=== PATIENT | female | born 1955 | race African-American/Black ===

== ENCOUNTER 2018-01-17 17:27 | Inpatient (IN) | payer MEDICARE, MEDICAID ==
[~2018-01-17] VITALS: Ht 165.1 cm; Wt 58.6 kg
[2018-01-17] MEDS ORDERED: SODIUM CHLORIDE 0.9% 1000ML BAG (SEPSIS BOLUS) IV ONE (17:45)
[2018-01-17] MEDS ORDERED: LORAZEPAM 2MG/ML CPJ IM STA (17:51)
[2018-01-17] MEDS ORDERED: HALOPERIDOL LACTATE 5MG/ML VIAL IM ONE (18:00)
[2018-01-17 19:05] LABS: HEMATOCRIT. 37.4 % (36.0-48.0); HEMOGLOBIN. 12.3 g/dL (12.0-16.0); MEAN CORPUSCULAR HEMOGLOBIN 30.1 pg (28.0-32.0); MEAN CORPUSCULAR VOLUME 91.2 fL (81.0-99.0); MEAN PLATELET VOLUME 10.3 fl (7.4-10.4); PLATELET 112 x1000/uL (130-400); RED CELL DISTRIBUTION WIDTH 17.6 % (11.6-14.6)
[2018-01-17 19:09] LABS: CHLORIDE 123 mEq/L (98-107); INR 1.4; PROTHROMBIN TIME 13.6 sec (9.1-11.1)
[2018-01-17 19:30] LABS: PLATELET ESTIMATE DECREASED
[2018-01-17] MEDS ORDERED: VANCOMYCIN 1 G PREMIX 200 ML IV ONE (19:30)
[2018-01-17] MEDS ORDERED: PIPERACILLIN/TAZ 3.375G PREMIX 50 ML IV ONE (19:30)
[2018-01-17 21:45] VITALS: BP 115/88
[2018-01-17 21:46] VITALS: BP 115/88
[2018-01-17 21:59] LABS: CLARITY URINE CLEAR (CLEAR); COLOR URINE YELLOW (YELLOW); KETONES URINE NEGATIVE (NEGATIVE); LEUKOCYTE ESTERASE URINE 1+ (NEGATIVE); NITRITE URINE NEGATIVE (NEGATIVE); OCCULT BLOOD URINE 1+ (NEGATIVE); PROTEIN URINE 1+ (NEGATIVE); SPECIFIC GRAVITY URINE 1.014 (1.005-1.030)
[2018-01-17 22:00] VITALS: BP 103/76
[2018-01-17] MEDS ORDERED: DEXTROSE 5% WATER 1,000 ML IV SCH (22:38)
[2018-01-17] MEDS ORDERED: ACETAMINOPHEN 650MG SUPP PR PRN (22:45)
[2018-01-17] MEDS ORDERED: ONDANSETRON HCL 4MG/2ML VIAL IV PRN (22:45)
[2018-01-17] MEDS ORDERED: ONDANSETRON 4MG ODT PO PRN (23:30)
[2018-01-18] VITALS (9 sets, daily range): BP systolic 100–142; BP diastolic 42–90
[2018-01-18] MEDS ORDERED: VANCOMYCIN 1250MG in DEXTROSE 5% WATER 250ML IV SCH (02:00)
[2018-01-18] MEDS ORDERED: PIPERACILLIN/TAZ 3.375G PREMIX 50 ML IV SCH (06:00)
[2018-01-18 07:26] LABS: CHLORIDE 121 mEq/L (98-107)
[2018-01-18 07:33] LABS: HEMOGLOBIN. 12.1 g/dL (12.0-16.0); MEAN CORPUSCULAR HEMOGLOBIN 30.4 pg (28.0-32.0); MEAN CORPUSCULAR VOLUME 92.7 fL (81.0-99.0); MEAN PLATELET VOLUME 10.1 fl (7.4-10.4); PLATELET 106 x1000/uL (130-400); RED BLOOD CELL COUNT 3.99 mill/uL (4.2-5.4); RED CELL DISTRIBUTION WIDTH 18.1 % (11.6-14.6)
[2018-01-18 07:47] LABS: LDL CHOLESTEROL 91 mg/dL (5-100)
[2018-01-18 07:48] LABS: CREATINE KINASE 81 IU/L (26-192)
[2018-01-18 07:49] LABS: HDL CHOLESTEROL 23 mg/dL (40-59)
[2018-01-18 07:52] LABS: CREATINE KINASE MB FRACTION 1.9 ng/mL (0.5-3.6)
[2018-01-18] MEDS ORDERED: ENOXAPARIN 40MG/0.4ML SYR SUBCUT SCH (09:00)
[2018-01-18 12:43] LABS: FOLIC ACID (FOLATE) SERUM 15.8 ng/mL (>5.38)
[2018-01-18] MEDS ORDERED: POTASSIUM CHLORIDE INJ 20 MEQ in DEXT 5%/0.2% NACL 1,000 ML IV SCH (13:30)
[2018-01-18] MEDS ORDERED: DEXT 5%/0.2% NACL KCL 20MEQ/L 1,000 ML IV SCH (13:30)
[2018-01-18] MEDS ORDERED: LIDOCAINE HCL 1% 20ML VIAL (Pyxis) INJ ONE (13:55)
[2018-01-18] MEDS ORDERED: PIPERACILLIN/TAZOBACTAM 2.25 G in DEXTROSE 5% WATER 50 ML IV SCH (14:00)
[2018-01-18 14:01] LABS: BG BASE EXCESS 2.2 mmol/L (-2.0-2.0); BG CARBOXYHEMOGLOBIN 0.5 % (0.5-1.5); BG DEOXYHEMOGLOBIN 3.5 % (0.0-5.0); BG FRACTION INSPIRED OXYGEN 32; BG HCO3 ACT 23.7 mmol/L (22.0-26.0); BG METHEMOGLOBIN 0.2 % (0.0-1.5); BG OXYGEN SATURATION 96.5 % (92.0-98.5); BG OXYHEMOGLOBIN 95.8 % (94.0-97.0); BG PCO2 27.8 mmHg (35.0-45.0); BG PH 7.548 (7.350-7.450); BG PO2 86.7 mmHg (75.0-100.0); BG SAMPLE SITE RIGHT BRACHIAL; BG TOTAL HEMOGLOBIN 12.4 g/dL (12.0-18.0); BG VENT MODE NASAL CANNULA
[2018-01-18 14:53] LABS: SODIUM URINE RANDOM 12 mEq/L
[2018-01-18 15:00] LABS: *BENZODIAZEPINES SCREEN URINE NEGATIVE (NEGATIVE); *COCAINE SCREEN URINE NEGATIVE (NEGATIVE); METHADONE URINE SCREEN NEGATIVE (NEGATIVE); OPIATES URINE SCREEN NEGATIVE (NEGATIVE)
[2018-01-18 15:01] LABS: *AMPHETAMINES SCREEN URINE NEGATIVE (NEGATIVE); *BARBITURATES SCREEN URINE NEGATIVE (NEGATIVE); CANNABINOID URINE SCREEN NEGATIVE (NEGATIVE); PHENCYCLIDINE URINE SCREEN NEGATIVE (NEGATIVE)
[2018-01-18] MEDS: PIPERACILLIN/TAZ 3.375G PREMIX 50 ML IV SCH ×2 (15:40→21:20)
[2018-01-18 16:32] LABS: CHLORIDE 122 mEq/L (98-107)
[2018-01-18 16:34] LABS: AMYLASE 31 IU/L (25-115)
[2018-01-18 16:40] LABS: CREATINE KINASE 75 IU/L (26-192)
[2018-01-18 16:41] LABS: CREATINE KINASE MB FRACTION < 1.0 ng/mL (0.5-3.6)
[2018-01-18 17:04] LABS: PLATELET ESTIMATE DECREASED
[2018-01-18] MEDS: VANCOMYCIN 750 MG PREMIX 150 ML IV SCH (18:14)
[2018-01-18 19:57] LABS: AMMONIA 32 uMol/L (<32)
[2018-01-18 20:05] LABS: T4 FREE 1.16 ng/dL (0.76-1.46)
[2018-01-18] MEDS: PANTOPRAZOLE SODIUM 40 MG/VIAL IV SCH (21:21)
[2018-01-18] MEDS: ENOXAPARIN 60MG/0.6ML SYR SUBCUT SCH (21:21)
[2018-01-18] MEDS: POTASSIUM CHLORIDE INJ 30 MEQ in DEXTROSE 5% WATER 1,000 ML IV SCH (21:26)
[2018-01-19] VITALS (32 sets, daily range): BP systolic 75–188; BP diastolic 50–134
[2018-01-19] MEDS: PIPERACILLIN/TAZ 3.375G PREMIX 50 ML IV SCH ×4 (03:15→21:19)
[2018-01-19] MEDS: VANCOMYCIN 750 MG PREMIX 150 ML IV SCH ×2 (03:15→17:46)
[2018-01-19] MEDS: IPRATROPIUM/ALBUTEROL 0.5-3(2.5)MG/3ML NEB INH PRN ×3 (04:08→11:34)
[2018-01-19 08:28] LABS: AMMONIA 39 uMol/L (<32)
[2018-01-19] MEDS: ENOXAPARIN 60MG/0.6ML SYR SUBCUT SCH ×2 (08:41→21:19)
[2018-01-19] MEDS: PANTOPRAZOLE SODIUM 40 MG/VIAL IV SCH (08:41)
[2018-01-19 09:00] LABS: CHLORIDE 118 mEq/L (98-107)
[2018-01-19 09:09] LABS: PHOSPHORUS 2.9 mg/dL (2.5-4.9)
[2018-01-19] MEDS ORDERED: KCL 20MEQ/100ML PREMIX 100 ML IV NR (10:00)
[2018-01-19 10:18] LABS: BG BASE EXCESS 1.4 mmol/L (-2.0-2.0); BG CARBOXYHEMOGLOBIN 0.3 % (0.5-1.5); BG DEOXYHEMOGLOBIN 0.8 % (0.0-5.0); BG FRACTION INSPIRED OXYGEN 100; BG HCO3 ACT 25.2 mmol/L (22.0-26.0); BG METHEMOGLOBIN 0.5 % (0.0-1.5); BG OXYGEN SATURATION 99.2 % (92.0-98.5); BG OXYHEMOGLOBIN 98.4 % (94.0-97.0); BG PH 7.451 (7.350-7.450); BG PO2 353.9 mmHg (75.0-100.0); BG SAMPLE SITE RIGHT RADIAL; BG TOTAL HEMOGLOBIN 11.7 g/dL (12.0-18.0); BG VENT MODE MASK - NRB
[2018-01-19 10:35] LABS: AMMONIA 26 uMol/L (<32)
[2018-01-19] MEDS ORDERED: HYDRALAZINE 20MG/ML VIAL IV PRN (10:45)
[2018-01-19] MEDS: POTASSIUM CHLORIDE INJ 30 MEQ in DEXTROSE 5% WATER 1,000 ML IV SCH (11:03)
[2018-01-19] MEDS ORDERED: IPRATROPIUM/ALBUTEROL 0.5-3(2.5)MG/3ML NEB HHN PRN (12:30)
[2018-01-19 16:00] LABS: HEMATOCRIT. 33.2 % (36.0-48.0); HEMOGLOBIN. 10.9 g/dL (12.0-16.0); MEAN CORPUSCULAR HEMOGLOBIN 30.4 pg (28.0-32.0); MEAN CORPUSCULAR VOLUME 92.9 fL (81.0-99.0); MEAN PLATELET VOLUME 10.4 fl (7.4-10.4); PLATELET 115 x1000/uL (130-400); RED BLOOD CELL COUNT 3.57 mill/uL (4.2-5.4); RED CELL DISTRIBUTION WIDTH 17.7 % (11.6-14.6)
[2018-01-19 16:05] LABS: INR 1.4; PARTIAL THROMBOPLASTIN TIME 33.8 sec (23.4-31.0); PROTHROMBIN TIME 13.6 sec (9.1-11.1)
[2018-01-19 16:07] LABS: CHLORIDE 120 mEq/L (98-107)
[2018-01-19 16:17] LABS: PLATELET ESTIMATE DECREASED
[2018-01-19 18:58] LABS: BG BASE EXCESS 0.6 mmol/L (-2.0-2.0); BG CARBOXYHEMOGLOBIN 0.3 % (0.5-1.5); BG FRACTION INSPIRED OXYGEN 100; BG HCO3 ACT 25.1 mmol/L (22.0-26.0); BG METHEMOGLOBIN 0.3 % (0.0-1.5); BG OXYHEMOGLOBIN 98.4 % (94.0-97.0); BG PCO2 39.8 mmHg (35.0-45.0); BG PH 7.417 (7.350-7.450); BG PO2 181.5 mmHg (75.0-100.0); BG SAMPLE SITE RIGHT RADIAL; BG VENT MODE MASK - NRB
[2018-01-20] VITALS (84 sets, daily range): BP systolic 65–201; BP diastolic 49–109
[2018-01-20] MEDS: IPRATROPIUM/ALBUTEROL 0.5-3(2.5)MG/3ML NEB HHN SCH ×6 (00:36→20:10)
[2018-01-20] MEDS: PIPERACILLIN/TAZ 3.375G PREMIX 50 ML IV SCH ×4 (02:05→21:09)
[2018-01-20] MEDS: POTASSIUM CHLORIDE INJ 30 MEQ in DEXTROSE 5% WATER 1,000 ML IV SCH ×4 (02:06→21:21)
[2018-01-20] MEDS: VANCOMYCIN 750 MG PREMIX 150 ML IV SCH (04:27)
[2018-01-20 06:21] LABS: HEMATOCRIT. 34.5 % (36.0-48.0); HEMOGLOBIN. 11.3 g/dL (12.0-16.0); MEAN CORPUSCULAR HEMOGLOBIN 30.4 pg (28.0-32.0); MEAN CORPUSCULAR VOLUME 93.3 fL (81.0-99.0); MEAN PLATELET VOLUME 11.2 fl (7.4-10.4); PLATELET 125 x1000/uL (130-400); RED CELL DISTRIBUTION WIDTH 18.1 % (11.6-14.6)
[2018-01-20 06:37] LABS: AMMONIA 27 uMol/L (<32)
[2018-01-20 07:42] LABS: BG BASE EXCESS -0.7 mmol/L (-2.0-2.0); BG BILEVEL POS AIRWAY PRESSURE 15/5; BG CARBOXYHEMOGLOBIN 0.3 % (0.5-1.5); BG DEOXYHEMOGLOBIN 2.4 % (0.0-5.0); BG HCO3 ACT 22.6 mmol/L (22.0-26.0); BG METHEMOGLOBIN 0.1 % (0.0-1.5); BG OXYGEN SATURATION 97.6 % (92.0-98.5); BG OXYHEMOGLOBIN 97.2 % (94.0-97.0); BG PCO2 33.1 mmHg (35.0-45.0); BG PH 7.453 (7.350-7.450); BG PO2 106.5 mmHg (75.0-100.0); BG SAMPLE SITE RIGHT RADIAL; BG TOTAL HEMOGLOBIN 11.3 g/dL (12.0-18.0); BG VENT MODE MASK - BIPAP; BG VENT RATE 16 set
[2018-01-20 07:50] LABS: CHLORIDE 117 mEq/L (98-107)
[2018-01-20 07:55] LABS: NUCLEATED RED BLOOD CELLS 3 /100 WBC
[2018-01-20 07:56] LABS: PLATELET ESTIMATE SLIGHTLY DECREASED
[2018-01-20] MEDS: PANTOPRAZOLE SODIUM 40 MG/VIAL IV SCH (09:58)
[2018-01-20] MEDS: ENOXAPARIN 60MG/0.6ML SYR SUBCUT SCH (09:59)
[2018-01-20 12:19] LABS: BG BASE EXCESS 0.4 mmol/L (-2.0-2.0); BG CARBOXYHEMOGLOBIN 0.3 % (0.5-1.5); BG DEOXYHEMOGLOBIN 3.1 % (0.0-5.0); BG HCO3 ACT 25.5 mmol/L (22.0-26.0); BG METHEMOGLOBIN 0.2 % (0.0-1.5); BG OXYGEN SATURATION 96.9 % (92.0-98.5); BG OXYHEMOGLOBIN 96.4 % (94.0-97.0); BG PCO2 43.2 mmHg (35.0-45.0); BG PH 7.389 (7.350-7.450); BG PO2 101.6 mmHg (75.0-100.0); BG SAMPLE SITE RIGHT RADIAL; BG TIDAL VOLUME(mL) 450 mL; BG TOTAL HEMOGLOBIN 11.8 g/dL (12.0-18.0); BG VENT MODE VENT - A/C; BG VENT RATE 14 set
[2018-01-20] MEDS ORDERED: NOREPINEPHRINE BITARTRATE 1MG/ML 4ML IV ONE (12:21)
[2018-01-20] MEDS ORDERED: VECURONIUM BROMIDE 10 MG/VIAL IV ONE (13:54)
[2018-01-20] MEDS ORDERED: ETOMIDATE 2MG/ML 10ML VIAL IV ONE (13:54)
[2018-01-20] MEDS ORDERED: PROPOFOL 10MG/ML 100ML 100 ML IV PRN (21:00)
[2018-01-20] MEDS: ENOXAPARIN 40MG/0.4ML SYR SUBCUT SCH (21:10)
[2018-01-20] MEDS: NOREPINEPHRINE 8 MG in DEXT 5% WATER 242 ML IV PRN (23:53)
[2018-01-21] VITALS (131 sets, daily range): BP systolic 23–129; BP diastolic 13–97
[2018-01-21] MEDS: IPRATROPIUM/ALBUTEROL 0.5-3(2.5)MG/3ML NEB HHN SCH ×7 (00:06→23:57)
[2018-01-21] MEDS: PIPERACILLIN/TAZ 3.375G PREMIX 50 ML IV SCH ×4 (03:22→21:28)
[2018-01-21 06:03] LABS: HEMATOCRIT. 32.3 % (36.0-48.0); HEMOGLOBIN. 10.6 g/dL (12.0-16.0); MEAN CORPUSCULAR HEMOGLOBIN 30.1 pg (28.0-32.0); MEAN CORPUSCULAR VOLUME 91.7 fL (81.0-99.0); MEAN PLATELET VOLUME 11.1 fl (7.4-10.4); PLATELET 131 x1000/uL (130-400); RED BLOOD CELL COUNT 3.52 mill/uL (4.2-5.4); RED CELL DISTRIBUTION WIDTH 17.2 % (11.6-14.6)
[2018-01-21 06:24] LABS: CHLORIDE 111 mEq/L (98-107)
[2018-01-21 06:28] LABS: AMMONIA 41 uMol/L (<32)
[2018-01-21 06:30] LABS: PHOSPHORUS 2.4 mg/dL (2.5-4.9)
[2018-01-21] MEDS: VANCOMYCIN 750 MG PREMIX 150 ML IV SCH (08:39)
[2018-01-21] MEDS: ENOXAPARIN 40MG/0.4ML SYR SUBCUT SCH (08:40)
[2018-01-21] MEDS: THIAMINE HCL 100MG TABLET PO SCH ×2 (08:40→16:46)
[2018-01-21] MEDS: PANTOPRAZOLE SODIUM 40 MG/VIAL IV SCH (08:40)
[2018-01-21 08:51] LABS: BG CARBOXYHEMOGLOBIN 0.3 % (0.5-1.5); BG DEOXYHEMOGLOBIN 1.2 % (0.0-5.0); BG FRACTION INSPIRED OXYGEN 60; BG HCO3 ACT 22.2 mmol/L (22.0-26.0); BG METHEMOGLOBIN 0.3 % (0.0-1.5); BG OXYGEN SATURATION 98.8 % (92.0-98.5); BG OXYHEMOGLOBIN 98.2 % (94.0-97.0); BG PCO2 32.2 mmHg (35.0-45.0); BG PH 7.457 (7.350-7.450); BG SAMPLE SITE RIGHT RADIAL; BG TIDAL VOLUME(mL) 450 mL; BG VENT MODE VENT - A/C; BG VENT RATE 14 set
[2018-01-21 09:48] LABS: NUCLEATED RED BLOOD CELLS 6 /100 WBC; PLATELET ESTIMATE NORMAL
[2018-01-21] MEDS: NOREPINEPHRINE 8 MG in DEXT 5% WATER 242 ML IV PRN ×2 (10:20→19:23)
[2018-01-21] MEDS ORDERED: POTASSIUM CHLORIDE INJ 20 MEQ in DEXTROSE 5% WATER 1,000 ML IV SCH (11:06)
[2018-01-21] MEDS: POTASSIUM-SODIUM PHOSPHATE POWDER PACKET PO SCH ×2 (11:57→16:46)
[2018-01-21] MEDS ORDERED: DEXT 5% WATER + KCL 20MEQ/L 1,000 ML IV SCH (13:00)
[2018-01-21] MEDS: AZITHROMYCIN 500 MG in DEXT 5% WATER 250 ML IV SCH (16:47)
[2018-01-21] MEDS: ACETYLCYSTEINE 100MG/ML 10% VIAL 4ML INH SCH ×2 (16:51→23:57)
[2018-01-21] MEDS ORDERED: MORPHINE SULFATE 4 MG/ML CPJ (NOT FOR IM USE) IV PRN (17:30)
[2018-01-21 19:10] LABS: BG BASE EXCESS -17.3 mmol/L (-2.0-2.0); BG CARBOXYHEMOGLOBIN 0.3 % (0.5-1.5); BG DEOXYHEMOGLOBIN 1.2 % (0.0-5.0); BG FRACTION INSPIRED OXYGEN 60; BG HCO3 ACT 10.3 mmol/L (22.0-26.0); BG METHEMOGLOBIN 0.4 % (0.0-1.5); BG OXYGEN SATURATION 98.8 % (92.0-98.5); BG OXYHEMOGLOBIN 98.1 % (94.0-97.0); BG PCO2 30.4 mmHg (35.0-45.0); BG PH 7.146 (7.350-7.450); BG PO2 207.8 mmHg (75.0-100.0); BG SAMPLE SITE RIGHT RADIAL; BG TIDAL VOLUME(mL) 450 mL; BG TOTAL HEMOGLOBIN 10.5 g/dL (12.0-18.0); BG VENT MODE VENT - A/C; BG VENT RATE 12 set
[2018-01-21] MEDS: PHENYLEPHRINE 40 MG in DEXT 5% WATER 246 ML IV PRN (19:22)
[2018-01-21] MEDS ORDERED: SODIUM BICARBONATE 8.4% 1 MEQ/ML 50ML SYR IV NR (19:29)
[2018-01-21] MEDS ORDERED: SODIUM BICARBONATE 8.4% 1 MEQ/ML 50ML SYR IV ONE (19:29)
[2018-01-21] MEDS: VASOPRESSIN 10 UNIT in SODIUM CHLORIDE 0.9% 99.5 ML IV PRN (19:37)
[2018-01-21 20:47] LABS: CHLORIDE 108 mEq/L (98-107)
[2018-01-21] MEDS: ENOXAPARIN 60MG/0.6ML SYR SUBCUT SCH ×2 (21:00→23:17)
[2018-01-21 21:04] LABS: BASOPHILS % 0.1 % (0.0-2.0); EOSINOPHILS % 0.2 % (0.0-5.0); HEMATOCRIT. 28.6 % (36.0-48.0); HEMOGLOBIN. 9.2 g/dL (12.0-16.0); LYMPHOCYTES % 11.2 % (20.0-50.0); MEAN CORPUSCULAR HEMOGLOBIN 30.4 pg (28.0-32.0); MEAN CORPUSCULAR VOLUME 94.1 fL (81.0-99.0); MONOCYTES % 1.6 % (2.0-8.0); NEUTROPHILS % 86.9 % (40.0-76.0); PLATELET 83 x1000/uL (130-400); RED BLOOD CELL COUNT 3.04 mill/uL (4.2-5.4); RED CELL DISTRIBUTION WIDTH 17.7 % (11.6-14.6)
[2018-01-21 22:21] LABS: BG BASE EXCESS -5.9 mmol/L (-2.0-2.0); BG CARBOXYHEMOGLOBIN 0.3 % (0.5-1.5); BG DEOXYHEMOGLOBIN 0.7 % (0.0-5.0); BG FRACTION INSPIRED OXYGEN 100; BG HCO3 ACT 18.2 mmol/L (22.0-26.0); BG METHEMOGLOBIN 0.1 % (0.0-1.5); BG OXYGEN SATURATION 99.3 % (92.0-98.5); BG OXYHEMOGLOBIN 98.9 % (94.0-97.0); BG PCO2 31.2 mmHg (35.0-45.0); BG PH 7.384 (7.350-7.450); BG PO2 266.8 mmHg (75.0-100.0); BG SAMPLE SITE RIGHT RADIAL; BG TOTAL HEMOGLOBIN 11.2 g/dL (12.0-18.0); BG VENT MODE VENT - A/C; BG VENT RATE 18 set
[2018-01-22] VITALS (88 sets, daily range): BP systolic 35–200; BP diastolic 17–102
[2018-01-22] MEDS: NOREPINEPHRINE 8 MG in DEXT 5% WATER 242 ML IV PRN ×5 (00:53→19:44)
[2018-01-22] MEDS: VANCOMYCIN 750 MG PREMIX 150 ML IV SCH (02:06)
[2018-01-22] MEDS: PHENYLEPHRINE 40 MG in DEXT 5% WATER 246 ML IV PRN ×3 (02:42→23:49)
[2018-01-22] MEDS: PIPERACILLIN/TAZ 3.375G PREMIX 50 ML IV SCH ×4 (03:30→21:42)
[2018-01-22] MEDS: IPRATROPIUM/ALBUTEROL 0.5-3(2.5)MG/3ML NEB HHN SCH ×5 (04:22→20:22)
[2018-01-22 05:28] LABS: HEMATOCRIT. 35.8 % (36.0-48.0); HEMOGLOBIN. 11.8 g/dL (12.0-16.0); MEAN CORPUSCULAR HEMOGLOBIN 29.9 pg (28.0-32.0); MEAN CORPUSCULAR VOLUME 90.6 fL (81.0-99.0); MEAN PLATELET VOLUME 10.8 fl (7.4-10.4); PLATELET 107 x1000/uL (130-400); RED BLOOD CELL COUNT 3.95 mill/uL (4.2-5.4); RED CELL DISTRIBUTION WIDTH 17.1 % (11.6-14.6)
[2018-01-22 05:34] LABS: CHLORIDE 104 mEq/L (98-107)
[2018-01-22 05:41] LABS: PHOSPHORUS 2.2 mg/dL (2.5-4.9)
[2018-01-22 05:44] LABS: AMMONIA 38 uMol/L (<32)
[2018-01-22 08:18] LABS: BG CARBOXYHEMOGLOBIN 0.4 % (0.5-1.5); BG DEOXYHEMOGLOBIN 0.6 % (0.0-5.0); BG FRACTION INSPIRED OXYGEN 70; BG HCO3 ACT 19.6 mmol/L (22.0-26.0); BG METHEMOGLOBIN 0.6 % (0.0-1.5); BG OXYGEN SATURATION 99.4 % (92.0-98.5); BG OXYHEMOGLOBIN 98.4 % (94.0-97.0); BG PCO2 24.9 mmHg (35.0-45.0); BG PH 7.513 (7.350-7.450); BG PO2 251.1 mmHg (75.0-100.0); BG SAMPLE SITE RIGHT RADIAL; BG TIDAL VOLUME(mL) 450 mL; BG VENT MODE VENT - A/C; BG VENT RATE 18 set
[2018-01-22] MEDS: PANTOPRAZOLE SODIUM 40 MG/VIAL IV SCH (08:41)
[2018-01-22] MEDS: POTASSIUM-SODIUM PHOSPHATE POWDER PACKET PO SCH ×2 (08:41→17:29)
[2018-01-22] MEDS: ENOXAPARIN 60MG/0.6ML SYR SUBCUT SCH ×2 (08:42→21:43)
[2018-01-22] MEDS: THIAMINE HCL 100MG TABLET PO SCH ×2 (08:42→17:29)
[2018-01-22] MEDS: ACETYLCYSTEINE 100MG/ML 10% VIAL 4ML INH SCH ×2 (08:44→16:45)
[2018-01-22] MEDS ORDERED: SODIUM PHOS,M-BASIC-D-BASIC 20 MM in DEXT 5% WATER 243.3333 ML IV SCH (09:00)
[2018-01-22] MEDS ORDERED: MAGNESIUM 2 G PREMIX 50 ML IV SCH (09:30)
[2018-01-22] MEDS: DEXT 5%/0.2% NACL 1,000 ML IV SCH (09:34)
[2018-01-22] MEDS ORDERED: MAGNESIUM SULFATE 2 GM in DEXTROSE 5% WATER 50 ML IV SCH (10:00)
[2018-01-22 13:15] LABS: NUCLEATED RED BLOOD CELLS 5 /100 WBC; PLATELET ESTIMATE SLIGHTLY DECREASED
[2018-01-22] MEDS ORDERED: EPINEPHRINE 0.1MG/ML (1:10,000) 10ML SYR ONE (15:06)
[2018-01-22] MEDS ORDERED: SODIUM BICARBONATE 7.5% 0.9 MEQ/ML 50ML SYR IV ONE (15:06)
[2018-01-22] MEDS ORDERED: ATROPINE SULFATE 1MG/10ML SYR ONE (15:06)
[2018-01-22] MEDS ORDERED: CALCIUM CHLORIDE 1GM/10ML SYR IV ONE (15:06)
[2018-01-22] MEDS: AZITHROMYCIN 500 MG in DEXT 5% WATER 250 ML IV SCH (17:29)
[2018-01-22 19:23] LABS: PHOSPHORUS 7.5 mg/dL (2.5-4.9)
[2018-01-22] MEDS: VASOPRESSIN 10 UNIT in SODIUM CHLORIDE 0.9% 99.5 ML IV PRN (22:24)
[2018-01-22] MEDS ORDERED: NOREPINEPHRINE 32 MG in DEXT 5% WATER 468 ML IV PRN (23:15)
[2018-01-23] VITALS (95 sets, daily range): BP systolic 24–147; BP diastolic 12–66
[2018-01-23] MEDS: ACETYLCYSTEINE 100MG/ML 10% VIAL 4ML INH SCH (00:17)
[2018-01-23] MEDS: IPRATROPIUM/ALBUTEROL 0.5-3(2.5)MG/3ML NEB HHN SCH ×2 (00:18→04:15)
[2018-01-23] MEDS: DOPAMINE 400MG PREMIX 250 ML IV PRN ×3 (00:18→08:33)
[2018-01-23] MEDS: PIPERACILLIN/TAZ 3.375G PREMIX 50 ML IV SCH ×2 (03:06→09:00)
[2018-01-23] MEDS: PHENYLEPHRINE 40 MG in DEXT 5% WATER 246 ML IV PRN ×2 (03:32→08:00)
[2018-01-23] MEDS: VASOPRESSIN 10 UNIT in SODIUM CHLORIDE 0.9% 99.5 ML IV PRN ×2 (03:35→08:00)
[2018-01-23] MEDS: DEXT 5%/0.2% NACL 1,000 ML IV SCH (05:12)
[2018-01-23 06:24] LABS: AMMONIA 98 uMol/L (<32)
[2018-01-23 06:39] LABS: HEMATOCRIT. 28.9 % (36.0-48.0); HEMOGLOBIN. 9.2 g/dL (12.0-16.0); MEAN CORPUSCULAR HEMOGLOBIN 30.4 pg (28.0-32.0); MEAN CORPUSCULAR VOLUME 95.5 fL (81.0-99.0); MEAN PLATELET VOLUME 11.2 fl (7.4-10.4); PLATELET 56 x1000/uL (130-400); RED BLOOD CELL COUNT 3.03 mill/uL (4.2-5.4); RED CELL DISTRIBUTION WIDTH 17.8 % (11.6-14.6)
[2018-01-23 06:54] LABS: BG BASE EXCESS -19.6 mmol/L (-2.0-2.0); BG CARBOXYHEMOGLOBIN 0.3 % (0.5-1.5); BG DEOXYHEMOGLOBIN 1.1 % (0.0-5.0); BG HCO3 ACT 8.4 mmol/L (22.0-26.0); BG METHEMOGLOBIN 0.3 % (0.0-1.5); BG OXYGEN SATURATION 98.9 % (92.0-98.5); BG OXYHEMOGLOBIN 98.3 % (94.0-97.0); BG PCO2 27.2 mmHg (35.0-45.0); BG PH 7.108 (7.350-7.450); BG PO2 222.8 mmHg (75.0-100.0); BG SAMPLE SITE RIGHT RADIAL; BG TIDAL VOLUME(mL) 450 mL; BG TOTAL HEMOGLOBIN 9.6 g/dL (12.0-18.0); BG VENT MODE VENT - A/C; BG VENT RATE 16 set
[2018-01-23] MEDS ORDERED: SODIUM BICARBONATE 8.4% 1 MEQ/ML 50ML SYR IV ONE (07:15)
[2018-01-23 07:26] LABS: PHOSPHORUS 8.3 mg/dL (2.5-4.9)
[2018-01-23] MEDS ORDERED: MICAFUNGIN 100 MG in SODIUM CHLORIDE 0.9% 100 ML IV SCH (08:00)
[2018-01-23] MEDS ORDERED: SODIUM POLYSTYRENE SULFONATE 15 G/60 ML BOT PO SCH (08:30)
[2018-01-23] MEDS: THIAMINE HCL 100MG TABLET PO SCH (09:00)
[2018-01-23] MEDS: ENOXAPARIN 60MG/0.6ML SYR SUBCUT SCH (09:00)
[2018-01-23] MEDS: PANTOPRAZOLE SODIUM 40 MG/VIAL IV SCH (09:00)
[2018-01-23 13:03] LABS: NUCLEATED RED BLOOD CELLS 7 /100 WBC
[2018-01-23 13:04] LABS: PLATELET ESTIMATE MARKEDLY DECREASED
== END 2018-01-23 12:25 | disposition expired | DRG 871 ==
LOC: ER 17:41 → 5EST 19:47 → EDBEDREQTM 19:49 → EDBEDREQ 19:49 → ENRESERV 20:08 → 5EST 22:08 → CVICU 01-19 19:07
PROVIDERS: ADMIT Internal Medicine; ATTEND Internal Medicine
PROC: 02HV33Z Insertion of Infusion Device into Superior Vena Cava, Percutaneous Approach (ICD-10-PCS; 2018-01-18)
PROC: B548ZZA Ultrasonography of Superior Vena Cava, Guidance (ICD-10-PCS; 2018-01-18)
PROC: 5A09357 Assistance with Respiratory Ventilation, Less than 24 Consecutive Hours, Continuous Positive Airway Pressure (ICD-10-PCS; 2018-01-19)
PROC: 5A1945Z Respiratory Ventilation, 24-96 Consecutive Hours (ICD-10-PCS; 2018-01-20)
PROC: 0BH17EZ Insertion of Endotracheal Airway into Trachea, Via Natural or Artificial Opening (ICD-10-PCS; 2018-01-20)
PROC: 5A2204Z Restoration of Cardiac Rhythm, Single (ICD-10-PCS; principal; 2018-01-22)
DX: A41.9 Sepsis, unspecified organism (principal); J18.9 Pneumonia, unspecified organism; I21.4 Non-ST elevation (NSTEMI) myocardial infarction; E43 Unspecified severe protein-calorie malnutrition; G92 Toxic encephalopathy; I50.23 Acute on chronic systolic (congestive) heart failure; I26.99 Other pulmonary embolism without acute cor pulmonale; J96.00 Acute respiratory failure, unspecified whether with hypoxia or hypercapnia; N17.0 Acute kidney failure with tubular necrosis; R65.21 Severe sepsis with septic shock; N39.0 Urinary tract infection, site not specified; E87.0 Hyperosmolality and hypernatremia; D68.59 Other primary thrombophilia; E87.1 Hypo-osmolality and hyponatremia; E87.4 Mixed disorder of acid-base balance; I42.9 Cardiomyopathy, unspecified; I82.432 Acute embolism and thrombosis of left popliteal vein; R18.8 Other ascites; D69.6 Thrombocytopenia, unspecified; E83.39 Other disorders of phosphorus metabolism; E86.0 Dehydration; I07.1 Rheumatic tricuspid insufficiency; Z66 Do not resuscitate; L89.899 Pressure ulcer of other site, unspecified stage; E87.6 Hypokalemia; F41.9 Anxiety disorder, unspecified; I11.0 Hypertensive heart disease with heart failure; I46.9 Cardiac arrest, cause unspecified; I49.01 Ventricular fibrillation; I49.5 Sick sinus syndrome; R62.7 Adult failure to thrive; Z78.1 Physical restraint status; Z85.3 Personal history of malignant neoplasm of breast; Z92.21 Personal history of antineoplastic chemotherapy; Z92.3 Personal history of irradiation; Z86.73 Personal history of transient ischemic attack (TIA), and cerebral infarction without residual deficits; Z90.710 Acquired absence of both cervix and uterus; Z68.21 Body mass index [BMI] 21.0-21.9, adult
CPT/HCPCS: 31500; 36415; 36569; 36600; 70450; 70551; 71045; 71275; 74174; 76705; 76937; 80048; 80053; 80061; 80076; 80202; 80305; 81003; 82140; 82150; 82330; 82375; 82550; 82553; 82607; 82746; 82805; 82962; 83036; 83605; 83690; 83735; 83880; 83935; 84100; 84134; 84145; 84300; 84439; 84443; 84478; 84481; 84484; 85025; 85379; 85384; 85610; 85730; 86301; 87040; 87070; 87086; 87106; 93005; 93306; 93970; 94002; 94003; 94640; 94660; 96365; 96367; 96372; 99291; C1725; C1769; C9113; J0456; J0461; J1265; J1630; J1650; J2060; J2248; J2370; J2543; J2704; J3370; J3475; J3480; J3490; J7030; J7050; J7060; J7070; J7608; J7620; A4315